=== PATIENT | male | born 1965 | race Caucasian/White ===

== ENCOUNTER → 2024-06-10 16:41 | Outpatient (REF) | payer OTHER, SELFPAY | LOC: RAD 16:41 | PROVIDERS: ATTENDING PHYSICIAN Physician Assistant | DX: R05.8 Other specified cough (principal) | CPT/HCPCS: 71046 ==

== ENCOUNTER 2024-12-28 01:14 | Emergency (ER) | payer OTHER, SELFPAY ==
[2024-12-28 01:17] VITALS: BP 160/69; BMI 24.2
[2024-12-28 01:35] LABS: % Basophils 0.5 % (0-2); % Eosinophils 2.1 % (0-6); % Immature Granulocytes 0.3 % (0-0.5); % Lymphocytes 28.2 % (20.5-51.1); % Monocytes 4.9 % (1.7-9.3); Absolute Eosinophils 0.2 10^3/uL (0-0.7); Absolute Lymphocytes 2.4 10^3/uL (1.2-3.4); Absolute Monocytes 0.4 10^3/uL (0.1-0.6); Absolute Neutrophils 5.5 10^3/uL (1.4-6.5); Hematocrit 40.1 % (39.0-52.0); Hemoglobin 13.5 g/dL (13.0-18.0); Mean Corp Hgb Conc. 33.7 g/dL (33.0-37.0); Mean Corpuscular Hgb 29.2 pg (27.0-31.0); Mean Corpuscular Volume 86.6 fL (80.0-94.0); Mean Platelet Volume 9.3 fL (7.4-10.4); Nucleated Red Blood Cells % 0 % (-); Platelet Count 189 10^3/uL (130-400); Red Blood Cell Count 4.63 10^6/uL (4.70-6.10); Red Cell Dist. Width 12.3 % (11.5-14.5); White Blood Cell Count 8.6 10^3/uL (4.8-10.8)
[2024-12-28 01:48] LABS: ALT (SGPT) 20 U/L (0-50); AST (SGOT) 24 U/L (17-59); Albumin 4.4 g/dl (3.5-5.0); Alkaline Phosphatase 55 U/L (38-126); Blood Urea Nitrogen 23 mg/dl (9-20); Calcium 9.4 mg/dl (8.4-10.2); Carbon Dioxide 31 mmol/L (22-30); Chloride 106 mmol/L (98-107); Estimated Creatinine Clearance 81 ml/min; Glucose 104 mg/dl (70-99); Lipase 59 U/L (23-300); Potassium 4.4 mmol/L (3.5-5.1); Sodium 142 mmol/L (135-145); Total Bilirubin 0.4 mg/dl (0.2-1.3); Total Protein 6.7 g/dl (6.3-8.2); eGFR > 60.00
[2024-12-28 01:59] LABS: Troponin I 0.018 ng/ml
[2024-12-28 02:00] VITALS: BP 147/68
--- NOTE | 2024-12-28 02:15 | ED.GENMED ---
History of Present Illness
General
Chief Complaint: Abdominal Pain
Source: patient, spouse and ambulance crew
Exam Limitations: none
Time Seen by Provider: 12/28/24 01:37
Nursing documentation reviewed up to this point in time: agreed with
History of Present Illness
History of Present Illness:
This is a 59-year-old gentleman who has no significant past medical history save for mild intermittent asthma. He awoke tonight with onset of severe nonradiating epigastric pain accompanied with mild nausea and diaphoresis. He admits that
epigastric pain was quite severe, he felt restless. No history of similar episodes of pain. He took 1 Pepcid, called 911 and admits that epigastric pain was improving upon EMS arrival.
He denies chest pain or back pain. No cough no shortness of breath. No history of similar episodes of pain.
He admits to significant dietary indiscretion yesterday which is unlike him.
Prehospital EKG unremarkable.
Pain is now markedly improved but not completely resolved. He notes some 'grumbling in his abdomen.' No further nausea nor diaphoresis.
He takes no medicines on a daily basis.
Past History
Past History
ED Past Medical History: Asthma; Negative HTN, Hypercholesterolemia or IDDM
ED Past Surgical History: Orthopedic (Knee arthroscopy) and Other (Inguinal hernia repair); Negative Cardiac
Social History
Tobacco: Non-smoker
Alcohol: None
Drug: None
Personal:
Living: with family
Employment: Employed
Family History
Family History: Hypertension
Phy Exam
Physical Exam
Physical Exam:
GENERAL: 59-year-old gentleman appears his stated age, awake and alert, pleasant, appears in no acute distress. is accompanying.
EYE: anicteric
NECK: Supple, nontender, no meningismus, no significant adenopathy.
ENT: oral mucosa is moist. No rhinorrhea.
CARDIAC: Regular rate and rhythm. no murmur.
LUNGS: Clear breath sounds bilaterally, no acute respiratory distress, no wheezes/rales/rhonchi
ABDOMEN: Soft, nondistended, mild tenderness epigastric region, no r/g, no cvat. normoactive BS.
NEUROLOGICAL: Alert and oriented x3, no focal neuro deficits.
SKIN: Warm and dry, normal color, skin intact. No rash.
MUSCULOSKELETAL: No C/C/E. peripheral pulses are full and equal b/l. No palpable tenderness.
PSYCH: Normal and appropriate interaction.
Course
Orders/Labs/Results
Orders:
Orders
12/28/24 01:16
Electrocardiogram (*1) Urgent
Reason for Study: Abdominal Pain
12/28/24 01:17
EKG- Treatment ONCE
12/28/24 01:18
Complete Blood Count/With Diff Urgent
Comprehensive Metabolic Panel Urgent
Lipase Urgent
Troponin I Urgent
12/28/24 02:13
US Abdomen Complete/Upper Urgent
Comment:
Reason For Exam: acute severe upper abd pain
12/28/24 03:00
Troponin I Urgent
Abnormal Lab Results
12/28/24
01:18
RBC 4.63 L 10^6/uL
(4.70-6.10)
Carbon Dioxide 31 H mmol/L
(22-30)
BUN 23 H mg/dl
(9-20)
Glucose 104 H mg/dl
(70-99)
12/28/24 01:18
12/28/24 01:18
Vital Signs
Initial and Last Documented VS:
Initial Vital Signs
Pulse Resp BP
57 20 160/69
12/28/24 01:17 12/28/24 01:17 12/28/24 01:17
Last Documented Vital Signs
Temp Pulse Resp BP
98.7 F 51 12 139/57
12/28/24 01:19 12/28/24 03:00 12/28/24 03:00 12/28/24 03:00
MDM/Problems Addressed
Differential Diagnosis Includes:
Concern for acute biliary colic/cholecystitis, acute gastritis, pancreatitis, other consideration is ACS, small bowel obstruction, gastroenteritis.
EKG is unremarkable and unchanged from previous 2007.
Labs thus far unremarkable. Troponin 0.018. Lipase is normal, LFTs are normal. He continues to deny chest pain, no back pain. He does have some mild residual epigastric as well as mild right upper quadrant tenderness to palpation.
Will check abdominal ultrasound and plan to repeat troponin.
Chronic conditions affecting care: Previous abdomnial surgery
*Radiology
Radiology exam reviewed: radiology read reviewed (Abdominal ultrasound is unremarkable)
*Pulse Oximetry
Patient hypoxic: no
*EKG
Interpreted by ED Provider?: Yes
Interpretation: normal
Comparison EKG: no changes (Unchanged from previous 2007)
Rate: normal
Rhythm: sinus
[place]: normal axis
Interval: normal interval
QRS Pattern: right bundle branch block (Incomplete right bundle branch block, similar to previous 2008)
Ischemia: no ischemia
*Disaster Or Damage Control Specialist Interpretation
Rate: normal
Interpretation: normal
Rhythm: sinus
*Critical Care Note
Total Time (30-74mins, 75-104mins- exclusive of procedures): Not Applicable
Update Note
Update Note:
04:00
Patient remains pain-free and comfortable.
Abdominal ultrasound is unremarkable.
Troponin x 2 negative.
Patient may have suffered a brief episode of biliary colic. Other consideration is abdominal bowel gas.
Recommend bland diet at least over the next several days.
Prompt follow-up with PCP for recheck.
Return precautions discussed.
ED Attending Note
-
Portions of this chart may have been created with voice recognition software.� Occasional wrong word or��sound alike� substitutions may have occurred due to the inherent limitations of voice recognition software.
Discharge Plan
Departure
Patient Disposition: Home (Routine Discharge)
Date of Disposition: 12/28/24
Time of Disposition: 03:56
Patient with high blood pressure during this ER visit?: No
Condition: Good
Discharge Problem:
Abdominal pain, acute, epigastric
Instructions: Abdominal Pain
Prescriptions:
No Action
albuterol sulfate 1 PUFF HFA aerosol inhaler
1 puff inhalation R Q4HPRN PRN (Reason: wheezing)
Asmanex Twisthaler 220 MCG aerosol powdr breath activated
2 puff inhalation HS
ascorbic acid (vitamin C) [Vitamin C] 1,000 MG tablet
1,000 mg PO DAILY
multivitamin Tablet
1 tab PO DAILY
hydroxyzine HCl 10 mg Tablet
5 mg PO HSPRN PRN (Reason: sleep)
Referrals:
Brandon Cross PA [Family Provider] - Call in 1-3 days for appt
Interventions
Interventions:
*Risk Screen - Suicide Last Done: 12/28/24 01:19
*General Assessment Last Done: 12/28/24 01:19
*Neglect/Abuse Screening Last Done: 12/28/24 01:19
*ED- Fall Risk Assessment Last Done: 12/28/24 01:27
CW-Almzvt-Sifukyekwi Assessment Last Done: 12/28/24 01:31
Discharge Date and Time
Print Language: UZBEK
[2024-12-28 03:00] VITALS: BP 139/57
[2024-12-28 03:36] LABS: Troponin I 0.021 ng/ml
[2024-12-28 04:00] VITALS: BP 138/59
== END 2024-12-28 04:25 | disposition home or self-care (01) ==
LOC: EMR 01:14
PROVIDERS: EMERGENCY PHYSICIAN Emergency Medicine; FAMILY PHYSICIAN Physician Assistant
DX: R10.9 Unspecified abdominal pain (principal); J45.909 Unspecified asthma, uncomplicated; Z82.49 Family history of ischemic heart disease and other diseases of the circulatory system
CPT/HCPCS: 99284; 76700; 80053; 83690; 84484; 85025; 93005

== ENCOUNTER 2025-03-08 20:10 | Emergency (ER) | payer OTHER, SELFPAY ==
[2025-03-08 20:15] VITALS: BP 175/77
[2025-03-08] MEDS: ADACEL 0.5 ML IM (22:46)
[2025-03-08] MEDS: TORADOL 15 MG IM (22:47)
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
== END 2025-03-09 00:13 | disposition home or self-care (01) ==
LOC: EMR 20:10
PROVIDERS: EMERGENCY PHYSICIAN Emergency Medicine; FAMILY PHYSICIAN Physician Assistant
DX: S20.219A Contusion of unspecified front wall of thorax, initial encounter (principal); S20.311A Abrasion of right front wall of thorax, initial encounter; S50.311A Abrasion of right elbow, initial encounter; S70.211A Abrasion, right hip, initial encounter; S80.211A Abrasion, right knee, initial encounter; V18.2XXA Unspecified pedal cyclist injured in noncollision transport accident in nontraffic accident, initial encounter; Y93.55 Activity, bike riding; Z23 Encounter for immunization; R03.0 Elevated blood-pressure reading, without diagnosis of hypertension; J45.909 Unspecified asthma, uncomplicated; F41.9 Anxiety disorder, unspecified
CPT/HCPCS: 99284; 90471; 96372; 71101; 90715